=== PATIENT | female | born 1945 | race Caucasian/White ===

== ENCOUNTER 2019-07-25 17:00 | Emergency (ER) | payer MEDICARE, SELFPAY ==
[2019-07-25 17:05] VITALS: BP 129/57; PULSE 100; RESP 16; TEMP 37; O2SAT 98
--- NOTE | 2019-07-25 17:05 | ED.EAR ---
HPI - Ear Problem General Chief complaint: Ear Stated complaint: ear itches Time Seen by Provider: 07/25/19 17:10 Source: patient and RN notes reviewed Mode of arrival: ambulatory Limitations: no limitations History of Present Illness HPI Narrative: [place] female presents with concern for left ear itching and a crackling sound for 2 weeks. She denies pain, discharge, rhinorrhea, nasal congestion, cough, fever. Denies taking any medications for symptoms. MD Complaint: other (Ear itching) Location: left ear Related Data Home Medications Medication Instructions Recorded Confirmed anastrozole mg 07/25/19 Allergies Allergy/AdvReac Type Severity Reaction Status Date / Time No Known Allergies Allergy Unverified 02/10/15 14:24 Review of Systems Review of Systems: Narrative: CONSTITUTIONAL: Denies malaise, chills, sweats, or fever. EYES: Denies visual changes, redness, or discharge. ENT: Denies rhinorrhea, congestion, sinus pain, otalgia or sore throat. Reports itchy left ear CARDIOVASCULAR: Denies chest pain, palpitations, or edema. RESPIRATORY: Denies cough or dyspnea. SKIN: Denies rash or itching. NEUROLOGIC: Denies headache. All systems reviewed & are unremarkable except as noted in HPI and below PMFSH Family History Family History (Updated 08/14/18 @ 11:55 by DOCTOR UNKNOWN) Mother Family history of chronic obstructive pulmonary disease Family history of heart disease in male family member before age 55 Carcinoma of colon Family history of lymphoma Patient's mother is , Onset Age: 92 Father Patient's father is , Onset Age: 94 Sibling Patient's sister is in good health Other Family history of malignant neoplasm Social History Social History Smoking status: Never smoker Second hand tobacco smoke exposure: No Smoking end date: 05/08/92 Alcohol intake: current Comments At time of signature, agree with nursing past medical, surgical, social and family history. There is no relevant family history pertinent to the presenting complaint Exam Narrative: Exam Narrative: GENERAL: Well-appearing, well-nourished, and in no acute distress. HEAD: Normocephalic, atraumatic. EYES: PERRLA, conjunctivae clear ENT: Nares clear, turbinates pink, no rhinorrhea or epistaxis. Mucous membranes moist. TM pearly braden with sharp light reflex bilaterally; no tragal tenderness. Oropharynx without erythema or lesions. Tonsils not enlarged and without exudate. NECK: Supple. CHEST: No respiratory distress. Clear to auscultation. No bony deformities, no asymmetry. Speaks in full sentences. HEART: Regular rate and rhythm. No murmur heard. SKIN: Warm, dry, no rash. NEURO: Alert and oriented x3. PSYCH: Normal mood and affect Course Course Emergency Course: Patient is aware of diagnosis, understands and agrees to treatment plan. Anticipatory guidance given. Patient agrees to follow-up as directed and is aware of reasons to seek care at the emergency department. Portions of this record may have been created with voice recognition software Vital Signs Vital signs: Vital Signs Temperature 98.6 F 07/25/19 17:05 Pulse Rate 100 07/25/19 17:05 Respiratory Rate 16 07/25/19 17:05 Blood Pressure 129/57 L 07/25/19 17:05 Pulse Oximetry 98 07/25/19 17:05 Temperature 98.6 F 07/25/19 17:05 Pulse Rate 100 07/25/19 17:05 Respiratory Rate 16 07/25/19 17:05 Blood Pressure 129/57 L 07/25/19 17:05 Pulse Oximetry 98 07/25/19 17:05 Reviewed. Medical Decision Making MDM Narrative Medical decision making narrative: Exam findings show no acute concerns or changes; patient is non-toxic appearing and is in no distress. Patient is appropriate for outpatient treatment and follow-up. Vital Signs Vital Signs: Vital Signs Temperature 98.6 F 07/25/19 17:05 Pulse Rate 100 07/25/19 17:05 Respiratory Rate 16 07/25/19 17:05 Blood Pressure 129/57 L
== END 2019-07-25 17:25 | disposition home or self-care (01) ==
PROVIDERS: Emergency Provider Nurse Practitioner; PCP Physician Assistant
DX: L29.9 Pruritus, unspecified (principal)
CPT/HCPCS: 99213; G0463

== ENCOUNTER 2020-01-28 00:19 | Outpatient (CLI) | payer MEDICARE, SELFPAY ==
[2020-01-28 20:04] LABS: SARS-CoV-2 RNA PCR Negative
== END 2020-01-28 00:20 | disposition home or self-care (01) ==
LOC: ANHCOVIDDT 00:20
PROVIDERS: PCP Physician Assistant; Visit Provider Internal Medicine Gastroenterology
DX: Z01.812 Encounter for preprocedural laboratory examination (principal); Z20.828 Contact with and (suspected) exposure to other viral communicable diseases
CPT/HCPCS: 87635; C9803; U0003

== ENCOUNTER 2020-01-30 01:22 | Day surgery (SDC) | payer MEDICARE, SELFPAY ==
[2020-01-23 13:39] VITALS: BMI 25.0
[2020-01-30 06:26] VITALS: BP 117/59; PULSE 91; RESP 18; O2SAT 96; BMI 24.3
[2020-01-30] MEDS: LACTATED RINGERS 1,000 ML 150 ML IV CONT (06:56)
--- NOTE | 2020-01-30 06:59 | P.HP_ITS ---
History of Present Illness History of Present Illness Consent: Risks, benefits, and alternatives have been discussed and questions answered. Patient agrees to proceed with procedure. Chief complaint: Hx Colon Polyps Narrative: Marylu Boswell is a 74 year old W female Referred for screening colonoscopy secondary history of colonic polyps and a family history of colon cancer her mother diagnosed in her 70s. Patient is asymptomatic. Her last colonoscopy was 5 years ago. FOR[facility] Past Medical History Medical History Malignant neoplasm of breast Surgical History Surgical History (Updated 01/30/20 @ 07:01 by Blade Vitale MD) H/O hemorrhoidectomy H/O hysterectomy for benign disease H/O ovarian cystectomy Family History Family History Mother Family history of chronic obstructive pulmonary disease Family history of heart disease in male family member before age 55 Carcinoma of colon Family history of lymphoma Patient's mother is , Onset Age: 92 Father Patient's father is , Onset Age: 94 Sibling Patient's sister is in good health Other Family history of malignant neoplasm Social History Social History Smoking packs per day: 1 Smoking cigarettes per day: 20.0 Years smoked: 25 Smoking pack-years: 25.00 Smoking status: Former smoker Tobacco type: cigarettes Second hand tobacco smoke exposure: No Smoking end date: 05/08/92 Alcohol intake: never Substance use: never Substance use type: does not use Living arrangements: with family Spiritual care concerns: No Meds Home Medications and Allergies Home Medications Medication Instructions Recorded Confirmed Type anastrozole 1 mg PO DAILY 07/25/19 01/23/20 History lovastatin 10 mg tablet 10 mg PO QPM #90 tablet 10/30/19 01/23/20 Rx Metamucil 3 cap PO DAILY 01/23/20 01/23/20 History calcium carbonate-vitamin D3 1 tablet PO DAILY 01/23/20 01/23/20 History [Calcium with Vitamin D] lutein 20 mg PO DAILY 01/23/20 01/23/20 History oxybutynin chloride 5 mg PO DAILY 01/23/20 01/23/20 History vitamin E 200 unit PO DAILY 01/23/20 01/23/20 History Allergies Allergy/AdvReac Type Severity Reaction Status Date / Time No Known Allergies Allergy Verified 01/30/20 06:25 Vital Signs Vital Signs - 24 hr 01/30/20 06:26 Pulse Rate 91 Respiratory Rate 18 Blood Pressure 117/59 L Pulse Oximetry 96 Exam Const: Orientation/consciousness: patient oriented x3 Resp: Auscultation: clear to auscultation bilaterally Cardio: Rate: regular rate Rhythm: regular rhythm Heart sounds: no murmurs GI: GI Palp: Yes Soft to palpation, No Tenderness to palpation present (GI), Yes No hepatosplenomegaly present and No Palpable mass present Auscultation: normal bowel sounds Neuro: General: patient oriented x3 and no focal motor deficits Extrem: General: no pedal edema Assessment and Plan Additional Plan screening colonoscopy secondary history of colonic polyps and a family history of colon cancer
--- NOTE | 2020-01-30 07:12 | WPDANESEPPF ---
Anes - Initial Pre Proc Eval Procedure: Operation Date: 01/30/20 07:30 Proposed Procedures p Screening Colonoscopy - Blade Vitale MD Date/Time: 01/30/20 07:12 Surgeon: Blade Vitale MD Pre Op Diagnosis: Hx Colon Polyps Patient Data Age: 74 Gender: F Height: 5 ft 4 in Weight: 64.4 kg Last Vital Signs Pulse 91 01/30/20 06:26 Resp 18 01/30/20 06:26 BP 117/59 L 01/30/20 06:26 Pulse Ox 96 01/30/20 06:26 Allergies Allergy/AdvReac Type Severity Reaction Status Date / Time No Known Allergies Allergy Verified 01/30/20 06:25 Home Medications Medication Instructions Recorded Confirmed Type anastrozole 1 mg PO DAILY 07/25/19 01/23/20 History lovastatin 10 mg tablet 10 mg PO QPM #90 tablet 10/30/19 01/23/20 Rx Metamucil 3 cap PO DAILY 01/23/20 01/23/20 History calcium carbonate-vitamin D3 1 tablet PO DAILY 01/23/20 01/23/20 History [Calcium with Vitamin D] lutein 20 mg PO DAILY 01/23/20 01/23/20 History oxybutynin chloride 5 mg PO DAILY 01/23/20 01/23/20 History vitamin E 200 unit PO DAILY 01/23/20 01/23/20 History Patient hx anesthesia problems: none Family hx anesthesia problems: none PMFSH Past Medical History Medical History (Updated 01/30/20 @ 07:13 by Maxim Montoya MD) Malignant neoplasm of breast had lumpectomy and radiation and takes tamoxifen Surgical History Surgical History (Updated 01/30/20 @ 07:01 by Blade Vitale MD) H/O hemorrhoidectomy H/O hysterectomy for benign disease H/O ovarian cystectomy Family History Family History Mother Family history of chronic obstructive pulmonary disease Family history of heart disease in male family member before age 55 Carcinoma of colon Family history of lymphoma Patient's mother is , Onset Age: 92 Father Patient's father is , Onset Age: 94 Sibling Patient's sister is in good health Other Family history of malignant neoplasm Social History Social History Smoking packs per day: 1 Smoking cigarettes per day: 20.0 Years smoked: 25 Smoking pack-years: 25.00 Smoking status: Former smoker Tobacco type: cigarettes Second hand tobacco smoke exposure: No Smoking end date: 05/08/92 Alcohol intake: never Substance use: never Substance use type: does not use Living arrangements: with family Spiritual care concerns: No Anes - Eval Final PreProcedure Day of Procedure 01/30/20 07:12 Patient weight: normal Heart: regular rate and rhythm Lungs: clear to auscultation Airway: Mallampati scale class II Neurological: alert and oriented Last oral intake: >/= 8 hours ASA classification: II Emergent: no Anesthetic plan: proceed Anesthesia type and monitoring: general GIVS and standard monitoring Informed Consent: The patient's anesthetic plan and its attendant risks and benefits were discussed with the patient/family/POA. Questions were solicited and answers provided to the satisfaction of the patient/family/POA.
[2020-01-30 08:08] VITALS: BP 115/64; PULSE 76; RESP 16; O2SAT 99
[2020-01-30 08:18] VITALS: BP 118/79; PULSE 77; RESP 18; O2SAT 100
[2020-01-30 08:31] VITALS: BP 114/74; PULSE 78; RESP 18; O2SAT 99
== END 2020-01-30 08:47 | disposition home or self-care (01) ==
PROVIDERS: PCP Physician Assistant; Visit Provider Internal Medicine Gastroenterology
PROC: 0DJD8ZZ Inspection of Lower Intestinal Tract, Via Natural or Artificial Opening Endoscopic (ICD-10-PCS; CPT 45378; principal; 2020-01-30 07:30)
DX: Z12.11 Encounter for screening for malignant neoplasm of colon (principal); D12.3 Benign neoplasm of transverse colon; D12.4 Benign neoplasm of descending colon; D12.0 Benign neoplasm of cecum; K63.5 Polyp of colon; Q27.33 Arteriovenous malformation of digestive system vessel; Z80.0 Family history of malignant neoplasm of digestive organs; Z85.3 Personal history of malignant neoplasm of breast; Z87.891 Personal history of nicotine dependence; Z92.3 Personal history of irradiation; Z79.810 Long term (current) use of selective estrogen receptor modulators (SERMs)
CPT/HCPCS: 45380; 45385; 45388; 88305; J2704; J7120

== ENCOUNTER 2020-02-12 10:43 | Outpatient (NON) | payer MEDICARE, SELFPAY ==
[2020-02-12 23:09] LABS: SARS-CoV-2 RNA PCR Negative
== END 2020-02-12 10:44 ==
PROVIDERS: PCP Physician Assistant; Visit Provider Physician Assistant
DX: Z20.828 Contact with and (suspected) exposure to other viral communicable diseases (principal); R68.89 Other general symptoms and signs
CPT/HCPCS: 87635; C9803; U0003

== ENCOUNTER 2020-02-14 14:49 | Outpatient (CLI) | payer MEDICARE, SELFPAY ==
[2020-02-14 16:07] LABS: Add Urine Microscopic? YES; Appearance Urine Cloudy (Clear); Bacteria Urine 1+ /hpf; Bilirubin Urine Negative (Negative); Blood Urine 1+ (Negative); Color Urine Yellow (Yellow); Glucose Urine UA Negative (Negative); Ketones Urine Trace mg/dL (Negative); Leukocyte Esterase Ur 2+ LEU/UL (NEGATIVE); Mucus Urine Rare /lpf; Nitrate Urine Negative (Negative); Protein Urine Negative (Negative); Specific Grav Ur 1.015 (1.001-1.035); Squamous Epithelial Cell Urine Few /hpf (Few); Urobilinogen Urine Negative mg/dL (<2.0); WBC Urine >75 /hpf (0-3)
== END 2020-02-14 14:50 | disposition home or self-care (01) ==
PROVIDERS: PCP Physician Assistant; Visit Provider Physician Assistant
DX: R30.0 Dysuria (principal)
CPT/HCPCS: 81001; 87077; 87086; 87088; 87186

== ENCOUNTER 2021-04-06 07:50 | Outpatient (CLI) | payer MEDICARE, SELFPAY ==
[2021-04-06 08:32] LABS: Alanine Aminotransferase 28 U/L (4-35); Albumin Level 4.3 g/dL (3.5-5.1); Alkaline Phosphatase 73 U/L (38-126); Anion Gap 6 mmol/L (8-16); Aspartate Amino Transferase 29 U/L (14-36); Bilirubin,Total 0.5 mg/dL (0.2-1.3); Blood Urea Nitrogen 21 mg/dL (7-17); Calcium 9.4 mg/dL (8.4-10.2); Carbon Dioxide 28 mmol/L (22-30); Chloride 103 mmol/L (98-107); Estimated Glomerular Filt Rate > 60; Glucose 99 mg/dL (65-110); Potassium 4.3 mmol/L (3.4-5.0); Sodium 137 mmol/L (137-145)
[2021-04-06 09:04] LABS: Hepatitis B Surface Antigen Negative (Negative)
[2021-04-06 09:10] LABS: HAV RESULT Negative (Negative); Hepatitis B Core IgM Result Negative (Negative)
[2021-04-06 09:21] LABS: Hepatitis C Virus Antibody Negative (Negative)
== END 2021-04-06 07:51 | disposition home or self-care (01) ==
PROVIDERS: PCP Physician Assistant; Visit Provider Physician Assistant
DX: R74.8 Abnormal levels of other serum enzymes (principal); R74.01 Elevation of levels of liver transaminase levels
CPT/HCPCS: 36415; 80053; 80074

== ENCOUNTER 2021-06-22 13:59 | Outpatient (CLI) | payer MEDICARE, SELFPAY ==
[2021-06-22 14:18] LABS: Basophils Absolute Auto 0.1 K/mm3 (0.0-0.1); Basophils Percent Auto 0.5 % (0.2-1.2); Eosinophils Absolute Auto 0.1 K/mm3 (0-0.3); Eosinophils Percent Auto 0.9 % (0-4.4); Hematocrit 45.1 % (37.0-47.0); Hemoglobin 14.4 g/dL (12.0-15.0); Immature Granulocyte Absolute 0.03 K/mm3 (0.00-0.031); Immature Granulocyte Percent A 0.3 % (0-0.5); Lymphocytes Absolute Auto 2.11 K/mm3 (0.9-3.2); Lymphocytes Percent Auto 20.3 % (18.3-44.2); Mean Corpuscular HGB Conc 31.9 g/dl (32-36); Mean Corpuscular Hemoglobin 30.3 pg (26-34); Mean Corpuscular Volume 94.9 fl (80-100); Mean Platelet Volume 10.5 fl (7.4-10.4); Monocytes Absolute Auto 0.7 K/mm3 (0.1-0.6); Monocytes Percent Auto 6.5 % (2.6-8.5); Neutrophils Absolute Auto 7.4 K/mm3 (1.3-6.7); Neutrophils Percent Auto 71.5 % (45.5-73.1); Platelet Count Result 245 k/mm3 (150-375); Red Blood Count 4.75 M/mm3 (4.2-5.4); Red Cell Distribution Width 13.9 % (11.5-14.5); White Blood Count 10.4 K/mm3 (4.5-10.0)
[2021-06-22 16:06] LABS: Alanine Aminotransferase 27 U/L (4-35); Albumin Level 4.1 g/dL (3.5-5.1); Alkaline Phosphatase 77 U/L (38-126); Anion Gap 3 mmol/L (8-16); Aspartate Amino Transferase 42 U/L (14-36); Bilirubin,Total 0.5 mg/dL (0.2-1.3); Blood Urea Nitrogen 18 mg/dL (7-17); Calcium 9.6 mg/dL (8.4-10.2); Carbon Dioxide 32 mmol/L (22-30); Chloride 104 mmol/L (98-107); Estimated Glomerular Filt Rate > 60; Glucose 119 mg/dL (65-110); Potassium 3.8 mmol/L (3.4-5.0); Sodium 139 mmol/L (137-145)
[2021-06-25 05:45] LABS: CA 15-3 5 U/mL (<32)
== END 2021-06-22 14:00 | disposition home or self-care (01) ==
PROVIDERS: PCP Physician Assistant; Visit Provider Internal Medicine Hematology & Oncology
DX: C50.911 Malignant neoplasm of unspecified site of right female breast (principal); Z17.0 Estrogen receptor positive status [ER+]
CPT/HCPCS: 36415; 80053; 85025; 86300

== ENCOUNTER 2021-09-13 14:47 | Outpatient (RCR) | payer MEDICARE, SELFPAY ==
[2021-09-13 15:14] LABS: Basophils Absolute Auto 0.1 K/mm3 (0.0-0.1); Basophils Percent Auto 0.5 % (0.2-1.2); Eosinophils Absolute Auto 0.1 K/mm3 (0-0.3); Eosinophils Percent Auto 0.8 % (0-4.4); Hematocrit 46.3 % (37.0-47.0); Hemoglobin 14.8 g/dL (12.0-15.0); Immature Granulocyte Absolute 0.03 K/mm3 (0.00-0.031); Immature Granulocyte Percent A 0.3 % (0-0.5); Lymphocytes Absolute Auto 3.15 K/mm3 (0.9-3.2); Lymphocytes Percent Auto 29.2 % (18.3-44.2); Mean Corpuscular Hemoglobin 30.8 pg (26-34); Mean Corpuscular Volume 96.3 fl (80-100); Mean Platelet Volume 10.8 fl (7.4-10.4); Monocytes Absolute Auto 0.6 K/mm3 (0.1-0.6); Monocytes Percent Auto 5.8 % (2.6-8.5); Neutrophils Absolute Auto 6.9 K/mm3 (1.3-6.7); Neutrophils Percent Auto 63.4 % (45.5-73.1); Platelet Count Result 248 k/mm3 (150-375); Red Blood Count 4.81 M/mm3 (4.2-5.4); Red Cell Distribution Width 13.8 % (11.5-14.5); White Blood Count 10.8 K/mm3 (4.5-10.0)
[2021-09-13 16:06] LABS: Alanine Aminotransferase 21 U/L (6-35); Albumin Level 4.6 g/dL (3.5-5.1); Alkaline Phosphatase 97 U/L (38-126); Anion Gap 6 mmol/L (8-16); Aspartate Amino Transferase 29 U/L (14-36); Bilirubin,Total 0.4 mg/dL (0.2-1.3); Blood Urea Nitrogen 17 mg/dL (7-17); Calcium 9.7 mg/dL (8.4-10.2); Carbon Dioxide 29 mmol/L (22-30); Chloride 103 mmol/L (98-107); Estimated Glomerular Filt Rate > 60; Glucose 89 mg/dL (65-110); Potassium 3.9 mmol/L (3.4-5.0); Sodium 138 mmol/L (137-145)
[2021-09-17 06:28] LABS: CA 15-3 7 U/mL (<32)
== END 2021-12-12 23:59 | disposition home or self-care (01) ==
LOC: ANHLAB 14:47
PROVIDERS: PCP Physician Assistant; Visit Provider Internal Medicine Hematology & Oncology
DX: C50.911 Malignant neoplasm of unspecified site of right female breast (principal); Z17.0 Estrogen receptor positive status [ER+]
CPT/HCPCS: 36415; 80053; 85025; 86300

== ENCOUNTER 2021-12-21 09:30 | Outpatient (CLI) | payer MEDICARE, SELFPAY ==
[2021-12-21 12:24] LABS: Appearance Urine Clear (Clear); Bilirubin Urine Negative (Negative); Blood Urine Trace-lysed (Negative); Color Urine Yellow (Yellow); Glucose Urine UA Negative (Negative); Ketones Urine Negative (Negative); Leukocyte Esterase Ur Negative LEU/UL (NEGATIVE); Nitrate Urine Negative (Negative); Protein Urine Negative (Negative); Specific Grav Ur 1.015 (1.001-1.035); Urobilinogen Urine 0.2 mg/dL (<2.0)
[2021-12-21 12:26] LABS: Add Urine Microscopic? YES
[2021-12-21 12:28] LABS: Mucus Urine Rare /lpf; Squamous Epithelial Cell Urine Rare /hpf (Few); WBC Urine 0-3 /hpf (0-3)
== END 2021-12-21 09:31 | disposition home or self-care (01) ==
LOC: ANHLAB 09:31
PROVIDERS: PCP Physician Assistant; Visit Provider Physician Assistant
DX: R35.0 Frequency of micturition (principal)
CPT/HCPCS: 81001; 87086

== ENCOUNTER 2021-12-25 00:44 | Emergency (ER) | payer MEDICARE, SELFPAY ==
[2021-12-25 00:46] VITALS: BP 137/91; PULSE 71; RESP 16; TEMP 36.7; O2SAT 98
[2021-12-25 01:11] LABS: Appearance Urine Clear (Clear); Bilirubin Urine Negative (Negative); Blood Urine 3+ (Negative); Color Urine Yellow (Yellow); Glucose Urine UA Negative (Negative); Ketones Urine Negative (Negative); Leukocyte Esterase Ur 3+ LEU/UL (Negative); Nitrate Urine Negative (Negative); Protein Urine Negative (Negative); Specific Grav Ur 1.025 (1.001-1.035); Urobilinogen Urine 0.2 mg/dL (<2.0); pH Urine 5.5 (5.0-9.0)
[2021-12-25 01:16] LABS: Bacteria Urine Trace /hpf; Mucus Urine Rare /lpf; RBC Urine >75 /hpf (0-2); Squamous Epithelial Cell Urine Many /hpf (Few); WBC Urine 31-50 /hpf
--- NOTE | 2021-12-25 01:21 | ED.FEMALEGU ---
HPI - Female Genitourinary General Chief complaint: Urogenital-Female Stated complaint: burning with voiding Time Seen by Provider: 12/25/21 00:54 Source: RN notes reviewed History of Present Illness HPI Narrative: Patient presents emergency department from home for dysuria. Patient states that she has been having dysuria as well as frequency that initially began approximately 5 days ago. She states that she initially called her PCP and had a urine test done on the was negative at that time she states that the symptoms are worse over the past 2 days and she is feeling she needs to urinate all the time and states that she has burning when she urinates she denies any fever chills she denies any back pain abdominal pain nausea vomiting or any other symptoms Related Data Home Medications Medication Instructions Recorded Confirmed anastrozole 1 mg tablet 1 mg PO DAILY 07/25/19 03/02/21 Metamucil 3 cap PO DAILY 01/23/20 03/02/21 calcium carbonate 600 mg-vitamin 1 tablet PO DAILY 01/23/20 03/02/21 D3 10 mcg (400 unit) tablet (Calcium with Vitamin D) lutein 20 mg capsule 20 mg PO DAILY 01/23/20 03/02/21 oxybutynin chloride 5 mg tablet 5 mg PO DAILY 01/23/20 03/02/21 apple cider vinegar 300 mg tablet 450 mg PO 02/25/20 03/02/21 ascorbate calcium (vitamin C) 500 500 mg PO DAILY 02/25/20 03/02/21 mg tablet docusate sodium 100 mg capsule 100 mg PO DAILY 02/25/20 03/02/21 lactobacillus combination no.9 4 4,000 mmu cells PO DAILY 02/25/20 03/02/21 billion cell capsule (Adult 50 Plus Probiotic) potassium gluconate 600 mg (99 mg) 600 mg PO DAILY 02/25/20 03/02/21 tablet vitamin E 200 unit capsule 200 unit PO DAILY 02/25/20 03/02/21 Allergies Allergy/AdvReac Type Severity Reaction Status Date / Time No Known Allergies Allergy Verified 12/25/21 01:10 Review of Systems Review of Systems: Gen.: Denies fevers or chills Respiratory: Denies shortness of breath CV: Denies chest pain GI: Denies abdominal pain nausea, emesis or diarrhea see HPI Musculoskeletal: Denies back pain or muscle pain Neuro: Denies numbness, tingling, weakness or focal weakness Skin: Denies rash Except as documented, all other systems reviewed and negative [facility] Past Medical History Medical History Malignant neoplasm of breast had lumpectomy and radiation and takes tamoxifen Surgical History Surgical History H/O hemorrhoidectomy H/O hysterectomy for benign disease H/O ovarian cystectomy Family History Family History Mother Family history of chronic obstructive pulmonary disease Family history of heart disease in male family member before age 55 Carcinoma of colon Family history of lymphoma Patient's mother is , Onset Age: 92 Father Patient's father is , Onset Age: 94 Sibling Patient's sister is in good health Other Family history of malignant neoplasm Social History Social History Smoking packs per day: 1 Smoking cigarettes per day: 20.0 Years smoked: 25 Smoking pack-years: 25.00 Smoking status: Former smoker Tobacco type: cigarettes Second hand tobacco smoke exposure: No Smoking end date: 05/08/92 Alcohol intake: never Substance use: never Substance use type: does not use Spiritual care concerns: No Exam Narrative: APPEARANCE: No acute distress, nontoxic, resting in bed EYES: EOMI HEENT: Normocephalic, atraumatic, RESPIRATORY: No respiratory distress Clear to auscultation bilaterally with no rhonchi wheezing or rales. CARDIOVASCULAR: Regular rate and rhythm without murmurs rubs or gallops. ABDOMINAL: Soft, nontender, nondistended, no rebound or guarding no flank tenderness MUSCULOSKELETAl: Moves all extremities. No clubbi
[2021-12-25] MEDS: CEPHALEXIN 500 MG CAPSULE PO (01:23)
[2021-12-25] MEDS: PHENAZOPYRIDINE HCL 100 MG TABLET PO (01:29)
[2021-12-25 01:33] LABS: Add Urine Microscopic? YES
== END 2021-12-25 01:42 | disposition home or self-care (01) ==
PROVIDERS: Emergency Provider Emergency Medicine; PCP Physician Assistant
DX: N39.0 Urinary tract infection, site not specified (principal); Z85.3 Personal history of malignant neoplasm of breast; Z92.3 Personal history of irradiation; Z79.810 Long term (current) use of selective estrogen receptor modulators (SERMs); Z87.891 Personal history of nicotine dependence
CPT/HCPCS: 81001; 87086; 87088; 99283; A9270

== ENCOUNTER 2022-03-16 08:19 | Outpatient (CLI) | payer MEDICARE, SELFPAY ==
[2022-03-16 08:33] LABS: Basophils Absolute Auto 0.1 K/mm3 (0.0-0.1); Basophils Percent Auto 0.5 % (0.2-1.2); Eosinophils Absolute Auto 0.2 K/mm3 (0-0.3); Eosinophils Percent Auto 1.8 % (0-4.4); Hematocrit 43.9 % (37.0-47.0); Hemoglobin 14.8 g/dL (12.0-15.0); Immature Granulocyte Absolute 0.04 K/mm3 (0.00-0.031); Immature Granulocyte Percent A 0.4 % (0-0.5); Lymphocytes Absolute Auto 3.13 K/mm3 (0.9-3.2); Lymphocytes Percent Auto 31.1 % (18.3-44.2); Mean Corpuscular HGB Conc 33.7 g/dl (32-36); Mean Corpuscular Hemoglobin 31.1 pg (26-34); Mean Corpuscular Volume 92.2 fl (80-100); Mean Platelet Volume 10.6 fl (7.4-10.4); Monocytes Absolute Auto 0.8 K/mm3 (0.1-0.6); Monocytes Percent Auto 7.5 % (2.6-8.5); Neutrophils Absolute Auto 5.9 K/mm3 (1.3-6.7); Neutrophils Percent Auto 58.7 % (45.5-73.1); Platelet Count Result 246 k/mm3 (150-375); Red Blood Count 4.76 M/mm3 (4.2-5.4); Red Cell Distribution Width 13.4 % (11.5-14.5); White Blood Count 10.1 K/mm3 (4.5-10.0)
[2022-03-16 10:57] LABS: Alanine Aminotransferase 18 U/L (6-35); Albumin Level 4.3 g/dL (3.5-5.1); Alkaline Phosphatase 80 U/L (38-126); Aspartate Amino Transferase 22 U/L (14-36); Bilirubin,Total 0.6 mg/dL (0.2-1.3); Blood Urea Nitrogen 21 mg/dL (7-17); Calcium 9.4 mg/dL (8.4-10.2); Carbon Dioxide 24 mmol/L (22-30); Estimated Glomerular Filt Rate > 60; Glucose 100 mg/dL (65-110); Potassium 4.1 mmol/L (3.4-5.0); Sodium 141 mmol/L (137-145)
[2022-03-16 11:01] LABS: Vitamin D 25 Hydroxy 90.3 ng/mL
[2022-03-16 11:09] LABS: Anion Gap 12 mmol/L (8-16); Chloride 105 mmol/L (98-107)
[2022-03-16 12:28] LABS: Cholesterol 209 mg/dL (0-200); HDL Direct 64 mg/dL; Triglycerides 126 mg/dL (<150)
[2022-03-16 12:39] LABS: LDL Cholesterol Direct 101 mg/dL
[2022-03-16 13:37] LABS: Folic Acid 11.2 ng/mL (2.76->20)
[2022-03-21 16:26] LABS: CA 15-3 8 U/mL (<32)
== END 2022-03-16 08:20 | disposition home or self-care (01) ==
LOC: ANHLAB 08:20
PROVIDERS: PCP Physician Assistant; Visit Provider Internal Medicine Hematology & Oncology
DX: E55.9 Vitamin D deficiency, unspecified (principal); R53.83 Other fatigue; E78.5 Hyperlipidemia, unspecified; C50.911 Malignant neoplasm of unspecified site of right female breast; Z17.0 Estrogen receptor positive status [ER+]
CPT/HCPCS: 36415; 80053; 80061; 82306; 82607; 82746; 84443; 85025; 86300

== ENCOUNTER 2022-09-13 11:20 | Outpatient (CLI) | payer MEDICARE, SELFPAY ==
--- NOTE | ~2022-09-13 | DEXA_ITS ---
Bone Density Report Name: HORACE ALONZO Age: 77 Sex: Female Ethnicity: White Date of : 1945 Indication: postmenopausal; screening for osteoporosis; cancer; hysterectomy; Referring Provider: BI DONAHUE Study: Bone densitometry was performed. Exam Date: September 13, 2022 Accession number: [id number] Bone Density: Region BMD T-score Z-score Classification AP Spine(L1-L4) 0.860 -1.7 0.8 Osteopenia Femoral Neck (Left) 0.789 -0.5 1.6 Normal Total Hip (Left) 0.804 -1.1 0.7 Osteopenia Femoral Neck (Right) 0.740 -1.0 1.1 Normal Total Hip (Right) 0.788 -1.3 0.6 Osteopenia Total Hip Mean 0.796 -1.2 0.7 Osteopenia World Health Organization criteria for BMD impression classify patients as: Normal (T-score at or above -1.0), Osteopenia (T-score between -1.0 and -2.5), or Osteoporosis (T-score at or below -2.5). 10-year Fracture Risk(1): Major Osteoporotic Fracture 11% Hip Fracture 2.8% Reported Risk Factors: [place] (), Neck BMD=0.740, BMI=24.8, smoking (1) FRAX(R) Version 3.08. Fracture probability calculated for an untreated patient. Fracture probability may be lower if the patient has received treatment. Previous Exams: Region Exam Age BMD T-score BMD Change BMD Change Date g/cm2 vs Baseline vs Previous AP Spine (L1-L4) 09/13/2022 77 0.860 -1.7 -0.111 (-11.5% -0.111 (-11.5% 09/19/2016 71 0.972 -0.7 Total Hip(Left) 09/13/2022 77 0.804 -1.1 -0.152 (-15.9% -0.152 (-15.9% 09/19/2016 71 0.957 0.1 Total Hip(Right) 09/13/2022 77 0.788 -1.3 -0.140 (-15.0% -0.140 (-15.0% 09/19/2016 71 0.927 -0.1 *Denotes significance at 95% confidence level, LSC for AP Spine = 0.022 g/cm2, LSC for Total Hip = 0.027 g/cm2 Clinical Information Provided by Patient: Smokes Has used the following medications: Vitamin D, Calcium Has the following medical conditions: Cancer, Hysterectomy Patient maximum height was 64 Menopause Age: 54 No regular weight bearing exercise Drinks caffeinated beverages Onset of menses at age 17 Number of children 1 Impression: The patient has low bone mass, based on the Total Spine T-score. The patient has an estimated ten-year risk of hip fracture of 2.8% and an estimated ten-year risk of major fracture of 11%, based on the WHO FRAX algorithm. The patient has risk factors, including: smoking. The BMD for the AP Spine (L1-L4) decreased, changing by -11.5% since the last DXA exam.
== END 2022-09-13 11:21 | disposition home or self-care (01) ==
LOC: ANHIMG 11:21
PROVIDERS: PCP Physician Assistant; Visit Provider Internal Medicine Hematology & Oncology
DX: M85.89 Other specified disorders of bone density and structure, multiple sites (principal)
CPT/HCPCS: 77080

== ENCOUNTER 2022-09-28 07:46 | Outpatient (CLI) | payer MEDICARE, SELFPAY ==
--- NOTE | 2022-09-28 07:59 | ECG_ITS ---
Measurements Intervals [place] Rate: 88 P: 43 SD: 147 QRS: 38 QRSD: 64 T: 29 QT: 344 QTc: 417 Interpretive Statements SINUS RHYTHM LOW QRS VOLTAGE IN PRECORDIAL LEADS BORDERLINE ECG NO PREVIOUS ECG AVAILABLE FOR COMPARISON Electronically Signed On 09-28-2022 8:43:18 CDT by Jero Morgan D.O.
== END 2022-09-28 07:47 | disposition home or self-care (01) ==
LOC: ANHSURGERY 07:50
PROVIDERS: PCP Physician Assistant; Visit Provider Podiatrist Foot & Ankle Surgery
DX: E78.5 Hyperlipidemia, unspecified (principal)
CPT/HCPCS: 93005

== ENCOUNTER 2022-09-28 08:30 | Outpatient (CLI) | payer MEDICARE, SELFPAY ==
[2022-09-28 08:48] LABS: Basophils Absolute Auto 0.1 K/mm3 (0.0-0.1); Basophils Percent Auto 0.6 % (0.2-1.2); Eosinophils Absolute Auto 0.1 K/mm3 (0-0.3); Eosinophils Percent Auto 1.4 % (0-4.4); Hematocrit 44.3 % (37.0-47.0); Hemoglobin 14.7 g/dL (12.0-15.0); Immature Granulocyte Absolute 0.04 K/mm3 (0.00-0.031); Immature Granulocyte Percent A 0.4 % (0-0.5); Lymphocytes Absolute Auto 2.49 K/mm3 (0.9-3.2); Lymphocytes Percent Auto 26.9 % (18.3-44.2); Mean Corpuscular HGB Conc 33.2 g/dl (32-36); Mean Corpuscular Hemoglobin 30.6 pg (26-34); Mean Corpuscular Volume 92.3 fl (80-100); Mean Platelet Volume 10.3 fl (7.4-10.4); Monocytes Absolute Auto 0.7 K/mm3 (0.1-0.6); Monocytes Percent Auto 7.9 % (2.6-8.5); Neutrophils Absolute Auto 5.8 K/mm3 (1.3-6.7); Neutrophils Percent Auto 62.8 % (45.5-73.1); Platelet Count Result 269 k/mm3 (150-375); Red Cell Distribution Width 13.6 % (11.5-14.5); White Blood Count 9.2 K/mm3 (4.5-10.0)
[2022-09-28 11:09] LABS: Alanine Aminotransferase 24 U/L (6-35); Albumin Level 4.3 g/dL (3.5-5.1); Alkaline Phosphatase 75 U/L (38-126); Anion Gap 7 mmol/L (8-16); Aspartate Amino Transferase 24 U/L (14-36); Bilirubin,Total 0.5 mg/dL (0.2-1.3); Blood Urea Nitrogen 22 mg/dL (7-17); Calcium 9.7 mg/dL (8.4-10.2); Carbon Dioxide 27 mmol/L (22-30); Chloride 104 mmol/L (98-107); Estimated Glomerular Filt Rate > 60; Glucose 93 mg/dL (65-110); Potassium 4.2 mmol/L (3.4-5.0); Sodium 138 mmol/L (137-145)
[2022-09-28 13:09] LABS: Vitamin D 25 Hydroxy 79.3 ng/mL
[2022-10-02 21:34] LABS: CA 15-3 10 U/mL (<32)
== END 2022-09-28 08:31 | disposition home or self-care (01) ==
LOC: ANHLAB 08:31
PROVIDERS: PCP Physician Assistant; Visit Provider Internal Medicine Hematology & Oncology
DX: C50.511 Malignant neoplasm of lower-outer quadrant of right female breast (principal); Z17.0 Estrogen receptor positive status [ER+]; E55.9 Vitamin D deficiency, unspecified
CPT/HCPCS: 36415; 80053; 82306; 85025; 86300; 93005

== ENCOUNTER 2022-09-30 00:39 | Day surgery (SDC) | payer MEDICARE, SELFPAY ==
[2022-09-22 08:17] VITALS: BMI 24.2
--- NOTE | 2022-09-22 08:38 | PC.NURSE ---
Report to the Outpatient Waiting Room, entrance under the green pavilion located off [facility], at time __6:00AM on date __09/30/22 . Planned Procedure Time: _7:30AM . Time changes happen often and if your time is changed the preop area will call you the afternoon before. - You and your visitor will be asked to self-screen and do not enter if you have any COVID symptoms. - A mask is optional within the hospital at this time. Patients may have clear liquids (water, carbonated beverages, clear teas, apple juice) until 3 hours prior to surgery with a maximum of 20 ounces. - No food from midnight until time of surgery Take the following medications with a SIP of water the morning of surgery: ___NONE DO NOT STOP ANY OF YOUR OTHER PRESCRIPTION MEDICATIONS PRIOR TO SURGERY ?EXCEPT THE FOLLOWING Medications to discontinue per physician ___HOLD ALL VITAMINS/SUPPLEMENT 3 DAYS PRE-OP Date to take last dose___09/26/22 Please no make-up, nail nepali, hairspray, perfume, deodorant, or body powder the day of surgery. No jewelry (including any body piercings) or valuables the day of surgery, leave them at home. Please take a shower or bath the night before, or the morning of, surgery with an antibacterial soap. Wear comfortable, loose fitting clothing. Children are encouraged to wear pajamas. - Jewelry must be removed prior to entering the operating room. Rings and piercings that are not removed may be cut off. - The hospital will not accept responsibility for valuables. - Please leave all valuables, including medications, at home the day of surgery. If you are going home after surgery, a licensed solid waste truck driver must drive you home. - NO public transportation without another adult if you receive anesthesia. - We recommend that an adult stay with you for 24 hours following discharge. - We also recommend that you do not drive, make important decision, drink alcoholic beverages, or take any drugs that were not prescribed by your health care provider for at least 24 hours after your discharge time. Follow any additional instructions given to you from your surgeon. If you or anyone in your household have experienced Covid symptoms in the past week, please notify your surgeon or the nurse liaison at the phone number below for possible testing. Telephone instructions given to __PATIENT and asked if any additional questions and then verbalized understanding. Patient advised to call surgeon office or pre surgery nurse liaison [phone] if any additional questions.
[2022-09-30] VITALS (9 sets, daily range): BP systolic 120–141; BP diastolic 61–74; PULSE 78–91; RESP 13–18; TEMP 36.4–36.6; O2SAT 95–100
--- NOTE | ~2022-09-30 | XR_ITS ---
EXAMINATION: XR surgery orthopedic DATE: 09/30/2022 09:34 INDICATION: Right foot arthrodesis correction TECHNIQUE: 2 fluoroscopic images of the right forefoot were obtained during procedure performed by Dr Nenita Morton. Radiologist was not present for the imaging or procedure. The amount of fluoroscopy time used during this procedure was 0.3 minutes. COMPARISON: 08/14/2018 FINDINGS: Images demonstrate a second proximal interphalangeal joint arthrodesis with placement of a fusion dev ice along the axillary directed guide wire which extends across all 3 phalanges into the head of the second metatarsal. The second proximal interphalangeal joint is been fixed with a minimal amount of l ateral subluxation. Additional age-indeterminate postoperative changes are seen in the forefoot inclu ding arthrodesis with fixation device at the fourth proximal interphalangeal joint, screw fixation fo r a likely shortening osteotomy at the head and neck of the second metatarsal is also first metatarso phalangeal arthrodesis fixed with 2 obliquely directed compression screw as well as dorsal plate and screw fixation. There has also been a prior bunionectomy along the medial head of the first metatarsa l. Alignment throughout the forefoot appears near-anatomic. No fractures identified. IMPRESSION: 1. Fluoroscopy utilized during orthopedic procedure at the right forefoot. See procedure note for fur ther detail. Reviewed, dictated and finalized at location A. IMPRESSION: 1. Fluoroscopy utilized during orthopedic procedure at the right forefoot. See procedure note for further detail.
--- NOTE | 2022-09-30 06:55 | WPDANESEPPF ---
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, Hammertoes Rt Foot Patient Data Age: 77 Gender: F Height: 1.63 m Weight: 64 kg Allergies Allergy/AdvReac Type Severity Reaction Status Date / Time No Known Allergies Allergy Verified 09/22/22 08:10 Home Medications Medication Instructions Recorded Confirmed Type anastrozole 1 mg tablet 1 mg PO DAILY 07/25/19 09/22/22 History calcium carbonate 600 mg-vitamin 1 tablet PO DAILY 01/23/20 09/22/22 History D3 10 mcg (400 unit) tablet (Calcium with Vitamin D) lutein 20 mg capsule 20 mg PO DAILY 01/23/20 09/22/22 History apple cider vinegar 300 mg tablet 450 mg PO DAILY 02/25/20 09/22/22 History docusate sodium 100 mg capsule 100 mg PO DAILY 02/25/20 09/22/22 History lactobacillus combination no.9 4 4,000 mmu cells PO DAILY 02/25/20 09/22/22 History billion cell capsule (Adult 50 Plus Probiotic) potassium gluconate 600 mg (99 mg) 600 mg PO DAILY 02/25/20 09/22/22 History tablet lovastatin 10 mg tablet 10 mg PO DAILY #90 tabs 12/15/21 09/22/22 Rx oxybutynin chloride 5 mg tablet 5 mg PO DAILY #180 tabs 02/25/22 09/22/22 Rx doxylamine succinate 25 mg tablet 25 mg PO QHS 03/08/22 09/22/22 History (Unisom (doxylamine)) melatonin 10 mg capsule 10 mg PO QHS 03/08/22 09/22/22 History Prunalax 1 tab-cap PO BID 07/25/22 09/22/22 History psyllium husk 0.4 gram capsule 0.12 g PO DAILY 05/18/23 05/18/23 History (Metamucil) Patient hx anesthesia problems: none Family hx anesthesia problems: none Results Review: All pre-operative results and documents have been reviewed as part of the pre-operative evaluation. [facility] Past Medical History Medical History Malignant neoplasm of breast had lumpectomy and radiation and takes tamoxifen Surgical History Surgical History H/O hemorrhoidectomy H/O hysterectomy for benign disease H/O ovarian cystectomy Family History Family History Mother Family history of chronic obstructive pulmonary disease Family history of heart disease in male family member before age 55 Carcinoma of colon Family history of lymphoma Patient's mother is , Onset Age: 92 Father Patient's father is , Onset Age: 94 Sibling Patient's sister is in good health Other Family history of malignant neoplasm Social History Social History Smoking packs per day: 1 Smoking cigarettes per day: 20.0 Years smoked: 36 Smoking pack-years: 36.00 Smoking status: Former smoker Tobacco type: cigarettes Second hand tobacco smoke exposure: No Smoking end date: 11/05/02 Alcohol intake: current Substance use: never Substance use type: does not use Lack of Transportation: No Lack of Food: Never True Current Housing: I Have Housing Concerned About Future Housing: No Difficulty Paying Gas/Electric Bills: No Difficulty Paying for Meds: No Currently Unemployed: No Education: High School Diploma/GED Difficulty w/ Childcare or Family Care: No Living arrangements: with family Additional living arrangements comments: [facility] Spiritual care concerns: No Anes - Eval Final PreProcedure Day of Procedure 09/30/22 06:55 Patient weight: normal Heart: regular rate and rhythm Lungs: clear to auscultation Airway: Mallampati scale class II Neurological: alert and oriented [place]
--- NOTE | 2022-09-30 07:18 | WPDHPUPDATE1 ---
History and Physical Update Update Date/Time: 09/30/22 07:18 History and Physical has been reviewed, including an updated exam of the patient. There are NO changes in the patient's condition. Risks, benefits, and alternatives have been discussed and questions answered. Patient agrees to proceed with procedure.
[2022-09-30] MEDS: LACTATED RINGERS 1,000 ML 30 ML IV CONT (07:28)
--- NOTE | 2022-09-30 07:38 | WPDANESPNB ---
Anes - Peripheral Nerve Block Date/Time: 09/30/22 07:38 I have discussed with the patient/family/POA the placement of a peripheral nerve block for post-operative pain management, including associated risks, benefits, complications, and side effects. Alternative methods of post-operative analgesia were detailed. Questions were solicited and answers provided to the satisfaction of the patient/family/POA. Time-Out: A pre-procedural Time-Out was completed immediately before starting the procedure and confirmed: Patient Identification, Site, Procedure, Patient Position and the Availability of Requisite Equipment. Clinical Indications: Acute post-operative pain management requested by the operative surgeon. Nerve Block Insertion Note Anes-nerve block: posterior fossa sciatic right and other (saphenous) Patient position: supine Skin prep: chlorhexidine Needle: 22 gauge, stimulating, insulated echogenic needle. Needle length: 80 mm Technique: nerve stimulation lost at (mA) (0.35) Injectate: bupivacaine 0.5% with epi 5 mcg/ml (20cc no epi sciatic, 10cc saphenous) and dexamethasone (mg) (8)
--- NOTE | 2022-09-30 09:44 | W.PM.PROC2 ---
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 Arthrodesis of the first metatarsal phalangeal joint right foot 2. Hammertoe repair 2nd 4th and 5th digits right foot 3. Zackery shortening second metatarsal osteotomy right foot Surgeon Jarad Morton JR, DEMARCUS Anesthesia General and Regional Indications Painful right forefoot with recurrent bunion deformity. Description of Procedure PROCEDURE IN DETAIL: Under mild sedation, the patient was brought into the operating room, placed on the operating table in supine position. A pneumatic ankle tourniquet was placed about the patient's ipsilateral ankle. Following general anesthesia and a popliteal fossa block, the foot was then scrubbed, prepped, and draped in the usual aseptic manner. An Esmarch bandage was then used to exsanguinate the patient's foot and the pneumatic ankle tourniquet was then inflated. Surgery began in the following manner: Attention was directed to the dorsal medial aspect of the 1st metatarsophalangeal joint where there was a large nunion deformity noted. The incision was made starting along the central shaft of the 1st metatarsal and extending just proximal to the interphalangeal joint of the hallux. The incision was continued deep down through the subcutaneous tissues using sharp and blunt dissection. All bleeders were cauterized as necessary. At this point, the dissection was continued down to the level of the periosteum and capsular structures overlying the 1st metatarsophalangeal joint. A full length periosteum and capsular incision was made just medial to the extensor hallucis longus tendon. The periosteum and capsular structures were freed from the base of the proximal phalanx as well as the distal 1st metatarsal. At this point, the 1st metatarsophalangeal joint was identified. There was loss of articular cartilage to the head of the 1st metatarsal as well as the base of the proximal phalanx worse centrally and medially. There was significant broadening and hypertrophy of the 1st metatarsophalangeal joint. Utilizing a sagittal bone saw, the hypertrophied 1st metatarsal was resected dorsally, medially, and laterally. A power bur was used to make sure that there were no rough edges and also to further debride the hypertrophic 1st metatarsal. Next, a rongeur was used to resect the hypertrophic base of the proximal phalanx. At this point, the reamer system for the Maxforce system was used to denude the degenerative cartilage from the head of the 1st metatarsal as well as the base of the proximal phalanx. The cartilage and subchondral bone were fully debrided utilizing the reamer system until healthy bleeding bone was noted. Next, a 2-0 drill bit was used to further fenestrate the head of the 1st metatarsal as well as the base of the proximal phalanx in order to allow fusion across the 1st metatarsophalangeal joint. Next, a 0.045 inch K-wire was driven from the medial aspect of the base of the proximal phalanx into the head of the 1st metatarsal in order to serve as temporary fixation. A large steel plate was used to make sure that the hallux was in a rectus position both in the sagittal plane as well as the frontal plane. Excellent position of the hallux was noted. Next, a Maxforce plate was placed atop the 1st metatarsophalangeal joint held in position with [place] wires. Utilizing standard principles and techniques, the 2 distal drill holes were drilled and three 3.0 mm mm fully-threaded locking screws were driven from dorsal to plantar holding the distal aspect of the plate intact. At this point, the Maxforce compression system was utilized from dorsal distal to proximal plantar across the 1st metatarsophalangeal joint with excellent compressi
== END 2022-09-30 11:55 | disposition home or self-care (01) ==
PROVIDERS: PCP Physician Assistant; Visit Provider Podiatrist Foot & Ankle Surgery
PROC: (CPT 28750; principal; 2022-09-30 07:30)
PROC: (CPT 28750; 2022-09-30 07:30)
DX: M21.611 Bunion of right foot (principal); M20.41 Other hammer toe(s) (acquired), right foot; M20.5X1 Other deformities of toe(s) (acquired), right foot; G89.18 Other acute postprocedural pain; Z79.811 Long term (current) use of aromatase inhibitors; Z85.3 Personal history of malignant neoplasm of breast; Z92.3 Personal history of irradiation; Z87.891 Personal history of nicotine dependence
CPT/HCPCS: 28750; 28285 ×3; 28308; 64450; 64445; 36415; 80053; 82306; 85025; 86300; 93005; 99199; C1713; C1769; J1100; J2250; J2370; J2405; J2704; J3010; J7120

== ENCOUNTER 2022-12-06 08:32 | Outpatient (CLI) | payer MEDICARE, SELFPAY ==
[2022-12-06 08:56] LABS: Basophils Percent Auto 0.6 % (0.2-1.2); Eosinophils Absolute Auto 0.1 K/mm3 (0-0.3); Eosinophils Percent Auto 1.5 % (0-4.4); Hematocrit 41.2 % (37.0-47.0); Hemoglobin 13.3 g/dL (12.0-15.0); Immature Granulocyte Absolute 0.02 K/mm3 (0.00-0.031); Immature Granulocyte Percent A 0.3 % (0-0.5); Lymphocytes Absolute Auto 2.29 K/mm3 (0.9-3.2); Lymphocytes Percent Auto 34.9 % (18.3-44.2); Mean Corpuscular HGB Conc 32.3 g/dl (32-36); Mean Corpuscular Hemoglobin 30.6 pg (26-34); Mean Corpuscular Volume 94.7 fl (80-100); Mean Platelet Volume 10.9 fl (7.4-10.4); Monocytes Absolute Auto 0.5 K/mm3 (0.1-0.6); Monocytes Percent Auto 8.2 % (2.6-8.5); Neutrophils Absolute Auto 3.6 K/mm3 (1.3-6.7); Neutrophils Percent Auto 54.5 % (45.5-73.1); Platelet Count Result 220 k/mm3 (150-375); Red Blood Count 4.35 M/mm3 (4.2-5.4); Red Cell Distribution Width 13.8 % (11.5-14.5); White Blood Count 6.6 K/mm3 (4.5-10.0)
[2022-12-06 09:04] LABS: Appearance Urine Cloudy (Clear); Bacteria Urine 4+ /hpf; Bilirubin Urine Negative (Negative); Blood Urine Negative (Negative); Color Urine Yellow (Yellow); Glucose Urine UA Negative (Negative); Ketones Urine Negative (Negative); Leukocyte Esterase Ur 1+ LEU/UL (NEGATIVE); Nitrate Urine Positive (Negative); Non Pathogenic Casts 0-2; Protein Urine Negative (Negative); Specific Grav Ur 1.018 (1.001-1.035); Squamous Epithelial Cell Urine Few /hpf (Few); Urobilinogen Urine 0.2 mg/dL (<2.0)
[2022-12-06 09:08] LABS: Add Urine Microscopic? YES
[2022-12-06 09:15] LABS: Alanine Aminotransferase 20 U/L (6-35); Alkaline Phosphatase 63 U/L (38-126); Aspartate Amino Transferase 23 U/L (14-36); Bilirubin,Total 0.5 mg/dL (0.2-1.3); Blood Urea Nitrogen 19 mg/dL (7-17); Calcium 9.3 mg/dL (8.4-10.2); Chloride 105 mmol/L (98-107); Estimated Glomerular Filt Rate > 60; Glucose 104 mg/dL (65-110); Potassium 4.5 mmol/L (3.4-5.0); Sodium 139 mmol/L (137-145)
[2022-12-06 09:28] LABS: Anion Gap 5 mmol/L (8-16); Carbon Dioxide 29 mmol/L (22-30)
[2022-12-06 09:59] LABS: Vitamin D 25 Hydroxy 82.2 ng/mL
== END 2022-12-06 08:33 | disposition home or self-care (01) ==
PROVIDERS: PCP Physician Assistant; Visit Provider Physician Assistant
DX: R30.0 Dysuria (principal); E55.9 Vitamin D deficiency, unspecified; R53.83 Other fatigue
CPT/HCPCS: 36415; 80053; 81001; 82306; 84443; 85025; 87077; 87086; 87186

== ENCOUNTER 2023-02-09 01:34 | Day surgery (SDC) | payer MEDICARE, SELFPAY ==
[2023-02-01 11:45] VITALS: BMI 24.8
--- NOTE | 2023-02-08 14:26 | PM.HPGS ---
History of Present Illness History of Present Illness Consent: Risks, benefits, and alternatives have been discussed and questions answered. Patient agrees to proceed with procedure. Chief complaint: family hx colon ca Narrative: Marylu Boswell is a 77 year old female Referred for colon cancer screening. She had tubular adenomas removed 8 years ago. She also has a family history of colon cancer. Review of Systems Review of Systems: All systems reviewed & are unremarkable except as noted in HPI and below PMFSH Past Medical History Medical History Malignant neoplasm of breast had lumpectomy and radiation and takes tamoxifen Surgical History Surgical History H/O hemorrhoidectomy H/O hysterectomy for benign disease H/O ovarian cystectomy Family History Family History Mother Family history of chronic obstructive pulmonary disease Family history of heart disease in male family member before age 55 Carcinoma of colon Family history of lymphoma Patient's mother is , Onset Age: 92 Father Patient's father is , Onset Age: 94 Sibling Patient's sister is in good health Other Family history of malignant neoplasm Social History Social History Smoking packs per day: 1 Smoking cigarettes per day: 20.0 Years smoked: 36 Smoking pack-years: 36.00 Smoking status: Current some day smoker Tobacco type: cigarettes Second hand tobacco smoke exposure: No Smoking end date: 11/05/02 Alcohol intake: current Alcohol use details: occasionally Substance use: never Substance use type: does not use Lack of Transportation: No Lack of Food: Never True Current Housing: I Have Housing Concerned About Future Housing: No Difficulty Paying Gas/Electric Bills: No Difficulty Paying for Meds: No Currently Unemployed: No Education: High School Diploma/GED Difficulty w/ Childcare or Family Care: No Living arrangements: with family Additional living arrangements comments: [facility] Spiritual care concerns: No Meds Home Medications and Allergies Home Medications Medication Instructions Recorded Confirmed Type calcium carbonate 600 mg-vitamin 1 tablet PO DAILY 01/23/20 02/09/23 History D3 10 mcg (400 unit) tablet (Calcium with Vitamin D) lutein 20 mg capsule 20 mg PO DAILY 01/23/20 02/09/23 History apple cider vinegar 300 mg tablet 450 mg PO DAILY 02/25/20 02/09/23 History docusate sodium 100 mg capsule 100 mg PO DAILY 02/25/20 02/09/23 History lactobacillus combination no.9 4 4,000 mmu cells PO DAILY 02/25/20 02/09/23 History billion cell capsule (Adult 50 Plus Probiotic) potassium gluconate 600 mg (99 mg) 600 mg PO DAILY 02/25/20 02/09/23 History tablet doxylamine succinate 25 mg tablet 25 mg PO QHS 03/08/22 02/09/23 History (Unisom (doxylamine)) melatonin 10 mg capsule 10 mg PO QHS 03/08/22 02/09/23 History psyllium husk 0.4 gram capsule 0.12 g PO DAILY 09/22/22 02/09/23 History (Metamucil) nitrofurantoin macrocrystal 100 mg 100 mg PO Q12H #20 caps 12/09/22 02/09/23 Rx capsule lovastatin 10 mg tablet 10 mg PO DAILY #90 tabs 12/19/22 02/09/23 Rx sodium,potassium,mag sulfates 17.5 See Rx Instructions PO .COMPLEX 01/03/23 02/09/23 Rx gram-3.13 gram-1.6 gram oral soln #354 mL (Suprep Bowel Prep Kit) tamoxifen 20 mg tablet 20 mg PO DAILY 02/01/23 02/09/23 History oxybutynin chloride 5 mg tablet See Rx Instructions .Route 02/06/23 02/09/23 Rx .COMPLEX #180 tabs Allergies Allergy/AdvReac Type Severity Reaction Status Date / Time No Known Allergies Allergy Verified 02/09/23 06:24 Exam Resp: Auscultation: clear to auscultation bilaterally Cardio: Rate: regular rate Rhythm: regular rh
[2023-02-09 06:25] VITALS: BP 101/59; PULSE 84; RESP 18; TEMP 36.6; O2SAT 100; BMI 24.4
[2023-02-09] MEDS: LACTATED RINGERS 1,000 ML 150 ML IV CONT (06:36)
--- NOTE | 2023-02-09 07:22 | WPDANESEPPF ---
Anes - Initial Pre Proc Eval Procedure: Operation Date: 02/09/23 07:30 Proposed Procedures p Colonoscopy - James Celaya MD Date/Time: 02/09/23 07:22 Surgeon: James Celaya MD Pre Op Diagnosis: family hx colon ca Patient Data Age: 77 Gender: F Height: 1.6 m Weight: 62.5 kg Last Vital Signs Temp 97.8 F 02/09/23 06:25 Pulse 84 02/09/23 06:25 Resp 18 02/09/23 06:25 BP 101/59 L 02/09/23 06:25 Pulse Ox 100 02/09/23 06:25 O2 Del Method Room Air 02/09/23 06:25 Allergies Allergy/AdvReac Type Severity Reaction Status Date / Time No Known Allergies Allergy Verified 02/09/23 06:24 Home Medications Medication Instructions Recorded Confirmed Type calcium carbonate 600 mg-vitamin 1 tablet PO DAILY 01/23/20 02/09/23 History D3 10 mcg (400 unit) tablet (Calcium with Vitamin D) lutein 20 mg capsule 20 mg PO DAILY 01/23/20 02/09/23 History apple cider vinegar 300 mg tablet 450 mg PO DAILY 02/25/20 02/09/23 History docusate sodium 100 mg capsule 100 mg PO DAILY 02/25/20 02/09/23 History lactobacillus combination no.9 4 4,000 mmu cells PO DAILY 02/25/20 02/09/23 History billion cell capsule (Adult 50 Plus Probiotic) potassium gluconate 600 mg (99 mg) 600 mg PO DAILY 02/25/20 02/09/23 History tablet doxylamine succinate 25 mg tablet 25 mg PO QHS 03/08/22 02/09/23 History (Unisom (doxylamine)) melatonin 10 mg capsule 10 mg PO QHS 03/08/22 02/09/23 History psyllium husk 0.4 gram capsule 0.12 g PO DAILY 09/22/22 02/09/23 History (Metamucil) nitrofurantoin macrocrystal 100 mg 100 mg PO Q12H #20 caps 12/09/22 02/09/23 Rx capsule lovastatin 10 mg tablet 10 mg PO DAILY #90 tabs 12/19/22 02/09/23 Rx sodium,potassium,mag sulfates 17.5 See Rx Instructions PO .COMPLEX 01/03/23 02/09/23 Rx gram-3.13 gram-1.6 gram oral soln #354 mL (Suprep Bowel Prep Kit) tamoxifen 20 mg tablet 20 mg PO DAILY 02/01/23 02/09/23 History oxybutynin chloride 5 mg tablet See Rx Instructions .Route 02/06/23 02/09/23 Rx .COMPLEX #180 tabs Patient hx anesthesia problems: none Family hx anesthesia problems: none Results Review: All pre-operative results and documents have been reviewed as part of the pre-operative evaluation. [facility] Past Medical History Medical History Malignant neoplasm of breast had lumpectomy and radiation and takes tamoxifen Surgical History Surgical History H/O hemorrhoidectomy H/O hysterectomy for benign disease H/O ovarian cystectomy Family History Family History Mother Family history of chronic obstructive pulmonary disease Family history of heart disease in male family member before age 55 Carcinoma of colon Family history of lymphoma Patient's mother is , Onset Age: 92 Father Patient's father is , Onset Age: 94 Sibling Patient's sister is in good health Other Family history of malignant neoplasm Social History Social History Smoking packs per day: 1 Smoking cigarettes per day: 20.0 Years smoked: 36 Smoking pack-years: 36.00 Smoking status: Current some day smoker Tobacco type: cigarettes Second hand tobacco smoke exposure: No Smoking end date: 11/05/02 Alcohol intake: current Alcohol use details: occasionally Substance use: never Substance use type: does not use Lack of Transportation: No Lack of Food: Never True Current Housing: I Have Housing Concerned About Future Housing: No Difficulty Paying Gas/Electric Bills: No Difficulty Paying for Meds: No Currently Unemployed: No Education: High School Diploma/GED Difficulty w/ Childcare or Family Care: No Living arrangements: with family Additional living arrangements comments: [facility]
[2023-02-09 07:50] VITALS: BP 118/60; PULSE 82; RESP 19; O2SAT 99
[2023-02-09 08:00] VITALS: BP 123/57; PULSE 86; RESP 22; O2SAT 97
[2023-02-09 08:10] VITALS: BP 123/69; PULSE 82; RESP 21; O2SAT 100
== END 2023-02-09 08:30 | disposition home or self-care (01) ==
PROVIDERS: PCP Physician Assistant; Visit Provider Internal Medicine Gastroenterology
PROC: 0DJD8ZZ Inspection of Lower Intestinal Tract, Via Natural or Artificial Opening Endoscopic (ICD-10-PCS; CPT 45378; principal; 2023-02-09 07:30)
DX: Z12.11 Encounter for screening for malignant neoplasm of colon (principal); K63.5 Polyp of colon; K57.30 Diverticulosis of large intestine without perforation or abscess without bleeding; K64.8 Other hemorrhoids; Z80.0 Family history of malignant neoplasm of digestive organs; Z85.3 Personal history of malignant neoplasm of breast; Z92.3 Personal history of irradiation; Z79.810 Long term (current) use of selective estrogen receptor modulators (SERMs); Z87.891 Personal history of nicotine dependence
CPT/HCPCS: 45380; 88305; J2704; J7120

== ENCOUNTER 2023-04-13 12:22 | Outpatient (CLI) | payer MEDICARE, SELFPAY ==
--- NOTE | ~2023-04-13 | XR_ITS ---
Clinical Indication: Fever PA and lateral views of the chest: Comparison: 02/15/2016 Findings: Probable right apical scarring. The lungs are otherwise clear, without evidence of focal co nsolidation or pleural effusion. Cardiomediastinal silhouette is within normal limits. Bones and sof t tissues are unremarkable. Impression: Probable right apical scarring, otherwise clear lungs. Reviewed, dictated and finalized at location . [employer] Impression: Probable right apical scarring, otherwise clear lungs.
== END 2023-04-13 12:23 | disposition home or self-care (01) ==
PROVIDERS: PCP Physician Assistant; Visit Provider Physician Assistant
DX: R05.9 Cough, unspecified (principal)
CPT/HCPCS: 71046

== ENCOUNTER 2023-05-09 13:48 | Outpatient (CLI) | payer MEDICARE, SELFPAY ==
[2023-05-09 14:04] LABS: Basophils Percent Auto 0.4 % (0.2-1.2); Eosinophils Absolute Auto 0.1 K/mm3 (0-0.3); Eosinophils Percent Auto 0.8 % (0-4.4); Hematocrit 40.2 % (37.0-47.0); Hemoglobin 13.3 g/dL (12.0-15.0); Immature Granulocyte Absolute 0.04 K/mm3 (0.00-0.031); Immature Granulocyte Percent A 0.4 % (0-0.5); Lymphocytes Absolute Auto 2.21 K/mm3 (0.9-3.2); Lymphocytes Percent Auto 21.9 % (18.3-44.2); Mean Corpuscular HGB Conc 33.1 g/dl (32-36); Mean Corpuscular Hemoglobin 30.9 pg (26-34); Mean Corpuscular Volume 93.3 fl (80-100); Mean Platelet Volume 10.5 fl (7.4-10.4); Monocytes Absolute Auto 0.7 K/mm3 (0.1-0.6); Monocytes Percent Auto 6.6 % (2.6-8.5); Neutrophils Absolute Auto 7.1 K/mm3 (1.3-6.7); Neutrophils Percent Auto 69.9 % (45.5-73.1); Platelet Count Result 228 k/mm3 (150-375); Red Blood Count 4.31 M/mm3 (4.2-5.4); Red Cell Distribution Width 14.2 % (11.5-14.5); White Blood Count 10.1 K/mm3 (4.5-10.0)
[2023-05-09 14:47] LABS: Alanine Aminotransferase 17 U/L (6-35); Albumin Level 4.2 g/dL (3.5-5.1); Alkaline Phosphatase 61 U/L (38-126); Anion Gap 7 mmol/L (8-16); Aspartate Amino Transferase 24 U/L (14-36); Bilirubin,Total 0.4 mg/dL (0.2-1.3); Blood Urea Nitrogen 21 mg/dL (7-17); Calcium 9.4 mg/dL (8.4-10.2); Carbon Dioxide 27 mmol/L (22-30); Chloride 105 mmol/L (98-107); Estimated Glomerular Filt Rate > 60; Glucose 98 mg/dL (65-110); Potassium 4.2 mmol/L (3.4-5.0); Sodium 139 mmol/L (137-145)
[2023-05-11 20:31] LABS: CA 15-3 11 U/mL (<32)
== END 2023-05-09 13:49 | disposition home or self-care (01) ==
PROVIDERS: PCP Physician Assistant; Visit Provider Internal Medicine Hematology & Oncology
DX: C50.511 Malignant neoplasm of lower-outer quadrant of right female breast (principal); Z17.0 Estrogen receptor positive status [ER+]
CPT/HCPCS: 36415; 80053; 85025; 86300